=== PATIENT | male | born 1985 | race Two or more races ===

== ENCOUNTER 2016-08-20 22:20 | Emergency (ER) | payer MEDICAID, OTHER ==
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
[2016-08-20 22:41] VITALS: TEMP 97.5; O2SAT 97
[2016-08-20 22:54] LABS: % IMMATURE GRANULYOCYTES 0.4 % (0.0-1.1); ABSOLUTE IMMATURE GRANULOCYTES 0.02 10^3/uL (0.00-0.10); ADD DIFF? NO; ADD MORPH? NO; ADD SCAN? NO; ATYPICAL LYMPHOCYTE FLAG 10 (0-99); FRAGMENT RBC FLAG 0 (0-99); HEMATOCRIT 45.1 % (40.0-51.0); HEMOGLOBIN 14.5 g/dL (13.7-17.5); LEFT SHIFT FLG 0 (0-99); LIPEMIA HEMOLYSIS FLAG 80 (0-99); MEAN CELL HEMOGLOBIN 27.5 pg (27.9-34.1); MEAN CELL HEMOGLOBIN CONCENTR. 32.2 g/dL (32.4-36.7); MEAN CELL VOLUME 85.4 fL (81.5-99.8); MEAN PLATELET VOLUME 10.7 fL (8.7-11.7); PLATELET CLUMPS FLAG 0 (0-99); PLATELET COUNT 307 10^3/uL (150-400); RED BLOOD CELL COUNT 5.28 10^6/uL (4.40-6.38); RED CELL DISTRIBUTION WIDTH 12.3 % (11.5-15.2)
[2016-08-20 23:10] LABS: ALANINE AMINOTRANSFERASE 34 IU/L (21-72); ALBUMIN 5.2 g/dL (3.5-5.0); ALKALINE PHOSPHATASE 107 IU/L (38-126); ANION GAP 15 mEq/L (8-16); ASPARTATE AMINOTRANSFERASE 21 IU/L (17-59); BILIRUBIN,TOTAL 0.7 mg/dL (0.1-1.4); CALCIUM 10.5 mg/dL (8.5-10.4); CARBON DIOXIDE 20 mEq/l (22-31); CHLORIDE 105 mEq/L (97-110); CREATININE 0.9 mg/dL (0.7-1.3); ETHANOL SERUM < 10 mg/dL (0-10); GLOMERULAR FILTRATION RATE > 60; GLUCOSE 116 mg/dL (70-100); POTASSIUM 4.5 mEq/L (3.5-5.2); SODIUM 140 mEq/L (134-144); TOTAL PROTEIN 8.7 g/dL (6.3-8.2)
[2016-08-21] MEDS ORDERED: IBUPROFEN 200 MG TAB PO ONE (00:02)
[2016-08-21 00:23] VITALS: BP 125/81; PULSE 78; RESP 16
== END 2016-08-21 00:24 | disposition home or self-care (01) ==
LOC: EDUNIT#
DX: F19.10 Other psychoactive substance abuse, uncomplicated (principal); F17.200 Nicotine dependence, unspecified, uncomplicated
CPT/HCPCS: 80305; G0480

== ENCOUNTER 2017-07-08 07:20 | Emergency (ER) | payer MEDICAID ==
--- NOTE | 2017-07-08 07:36 | EDPHY ---
H & P Smoking Status: Current every day smoker Time Seen by Provider: 07/08/17 07:27 HPI/ROS: CHIEF COMPLAINT: Homicidal and suicidal HISTORY OF PRESENT ILLNESS: 31-year-old male with bipolar disorder and schizophrenia presents with homicidal thoughts. He has a history of bipolar disorder and has previously been on Wellbutrin and Zyprexa. He stopped taking his medications 2 months ago. Last evening, he drank an excessive amount of alcohol and then began been having suicidal and homicidal thoughts. He was picked up by PD and placed on an M1 hold because he stated that he was going to kill somebody. He has been in long term previously, but has never killed anyone. He cut his wrists 2 months ago in a suicidal gesture. REVIEW OF SYSTEMS: Constitutional: No fever, no recent illness Eyes: No visual changes ENT: No sore throat Respiratory: No cough, no shortness of breath Cardiac: No chest pain Gastrointestinal: no vomiting, no abdominal pain Genitourinary: no dysuria Musculoskeletal: No leg pain or swelling Skin: No rash Neurological: No headache, no weakness Psychiatric: depression (Peyton Carrasquillo) Past Medical/Surgical History: Claims to have multiple psychiatric diagnoses, including bipolar disorder, schizophrenia, OCD, and PTSD (Peyton Carrasquillo) Social History: Homeless Denies recent drug use (Peyton Carrasquillo) Physical Exam: General Appearance: Alert, calm and cooperative Eyes: Pupils equal and round, no conjunctival pallor ENT, Mouth: Mucous membranes moist Neck: Normal inspection Respiratory: Lungs are clear to auscultation Cardiovascular: Regular rate and rhythm Gastrointestinal: Abdomen is soft and nontender Neurological: A&O, nonfocal, normal gait Skin: Warm and dry Extremities: Normal inspection Psychiatric: Mood and affect normal (Peyton Carrasquillo) Constitutional: Initial Vital Signs Temperature (C) 36.6 C 07/08/17 07:42 Heart Rate 100 07/08/17 07:42 Respiratory Rate 16 07/08/17 07:42 Blood Pressure 128/95 H 07/08/17 07:42 O2 Sat (%) 98 07/08/17 07:42 O2 Delivery Mode Room Air Allergies/Adverse Reactions: promethazine Allergy (Verified 08/20/16 22:41) Home Medications: Medication Instructions Recorded Neurontin 07/08/17 Wellbutrin 100mg (*) 07/08/17 Zyprexa 07/08/17 Medical Decision Making ED Course/Re-evaluation: 07:00 I assumed care of this patient at shift change. Following mental health evaluation, placement is recommended for this patient. 13:23 Patient is still pending placement. 14:36 Patient has been declined by every facility at this time. Per nurse, the options are to drop the hold or reevaluate the patient. The patient needs to remain on M1 hold. Plan for reevaluation. 15:00 Care of this patient signed out to Dr. Carrasquillo at shift change. (Guru Valderrama) 3:00 p.m.-signed over to Dr. Armando at shift change. Mental health evaluation pending. 07/09/17 at 3pm: I assumed care of this patient at shift change. Patient has been seen by mental health and inpatient disposition pending. 07/09/17 at 11pm: signed over to Dr. Medina at shift change. Inpatient mental health disposition pending. He received Ativan 1 mg orally for agitation during my shift. (Peyton Carrasquillo) 0600AM: No acute events overnight. Patient on M1 hold. Patient here with homicidal ideation. History of bipolar disorder. He has positive cocaine. He is currently having his mental health evaluation. Patient be signed over to Dr. Valderrama at 7am shift-change for further care. 0647: 07/10/17 No acute events overnight. Patient signed over to Dr. Kimble. Pending re-eval. (Marshal Medina) Other Provider: I assumed care of the patient at 3pm pending psychiatric disposition. The patient is currently awaiting psychiatric disposition at midnight. He did receive some Ativan throughout my shift for symptoms reported withdrawal. The patient will be turned over to Dr. Medina at shift change. (Galindo Armando) Mental health executive steward discussed case with me after re-evaluation. She has established a safety plan and follow-up and feels that patient is low risk for complication of discharge, and hold can be lifted. (Tyrone Kimble) - Data Points Laboratory Results: Laboratory Results 07/08/17 07:40 07/08/17 07:40 Medications Given: Discontinued Medications Acetaminophen (Tylenol) 650 mg PO EDNOW ONE Stop: 07/09/17 21:30 Last Admin: 07/09/17 21:31 Dose: 650 mg Lorazepam (Ativan) 1 mg PO EDNOW ONE Stop: 07/08/17 15:36 Last Admin: 07/08/17 15:38 Dose: 1 mg Lorazepam (Ativan) 1 mg PO EDNOW ONE Stop: 07/08/17 19:56 Last Admin: 07/08/17 20:05 Dose: 1 mg Lorazepam (Ativan) 1 mg PO EDNOW ONE Stop: 07/09/17 21:21 Last Admin: 07/09/17 21:28 Dose: 1 mg Ondansetron HCl (Zofran Odt) 4 mg PO EDNOW ONE Stop: 07/08/17 15:39 Last Admin: 07/08/17 15:40 Dose: 4 mg Departure - Departure Disposition: Home, Routine, Self-Care Clinical Impression: Suicidal ideation, Homicidal ideation Condition: Good Instructions: Suicide Prevention for Adults (ED) Additional Instructions: Follow-up with your mental health provider as directed. Return to the ED for thoughts of self-harm, racing thoughts or other concerns. Referrals: NONE *PRIMARY CARE P,. [Primary Care Provider] - As per Instructions
[2017-07-08 07:54] LABS: PLATELET COUNT 227 10^3/uL (150-400)
[2017-07-08] MEDS ORDERED: LORazepam 1 MG TAB PO ONE ×2 (15:35→19:55)
[2017-07-08] MEDS ORDERED: ONDANSETRON DISINTEGRATING 4 MG TAB PO ONE (15:38)
--- NOTE | 2017-07-09 11:37 | CPEKG ---
Heart Rate: 64 RR Interval: 938 P-R Interval: 176 QRSD Interval: 96 QT Interval: 408 QTC Interval: 421 P [place]: 58 QRS [place]: 87 T Wave [place]: 71 EKG Severity - NORMAL ECG - EKG Impression: SINUS RHYTHM Electronically Signed By: Guru Valderrama 09-Jul-2017 14:09:33
[2017-07-09] MEDS ORDERED: LORazepam 1 MG TAB ONE (21:19)
[2017-07-09] MEDS ORDERED: LORazepam 1 MG TAB PO ONE (21:20)
[2017-07-09] MEDS ORDERED: ACETAMINOPHEN 325 MG TAB ONE (21:25)
[2017-07-09] MEDS ORDERED: ACETAMINOPHEN 325 MG TAB PO ONE (21:29)
[2017-07-10 04:12] VITALS: RESP 16
[2017-07-10 08:28] VITALS: BP 102/61; PULSE 76; TEMP 97.5; O2SAT 96
== END 2017-07-10 12:01 | disposition home or self-care (01) ==
LOC: EEVIPCON 07:20
DX: R45.851 Suicidal ideations (principal); R45.850 Homicidal ideations; F17.200 Nicotine dependence, unspecified, uncomplicated
CPT/HCPCS: 80305; G0480

== ENCOUNTER 2017-07-26 16:31 | Emergency (ER) | payer MEDICAID ==
--- NOTE | 2017-07-26 18:10 | EDPHY ---
H & P Time Seen by Provider: 07/26/17 17:44 HPI/ROS: CHIEF COMPLAINT: Cough x2 months HISTORY OF PRESENT ILLNESS: 31-year-old immunocompetent male, homeless, intermittent cigarette use, complaining of 2 months of intermittently productive cough. He arrives via ambulance as he was at the [facility] walk-in clinic to discuss his medications but then called 911 due to his cough. Denies: Chest pain, dyspnea, suicidal or homicidal ideation, hallucination, cocaine use. PRIMARY CARE PROVIDER: REVIEW OF SYSTEMS: A ten point review of systems was performed and is negative with the exception of the items mentioned in the HPI PAST MEDICAL & SURGICAL HISTORY: Schizophrenia SOCIAL HISTORY: Intermittent tobacco use PHYSICAL EXAM (Prior to examination, patient consented to physical exam, hands were washed and my usual and customary physical exam procedures followed) 1) GENERAL: Well-developed, well-nourished, alert and oriented. Appears to be in no acute distress. Speaking full sentences. Comp cooperative 2) HEAD: Normocephalic, atraumatic 3) HEENT: Pupils equal, round, reactive to light bilaterally. Sclera anicteric. Nasopharynx, oropharynx, clear, no lesions. No tonsillar enlargement or exudate Ears bilaterally with normal tympanic membranes. 4) NECK: Full range of motion, no meningeal signs. 5) LUNGS: Clear auscultation bilaterally, no wheezes, no rhonchi, no retractions. 6) HEART: Regular rate and rhythm, no murmur, no heave, no gallop. 7) ABDOMEN: No guarding, no rebound, no focal tenderness, negative McBurney's, negative Whalen's, negative Rovsing's, negative peritoneal sign, 8) MUSCULOSKELETAL: Moving all extremities, no focal areas of tenderness, no obvious trauma. No peripheral edema or discoloration. 9) BACK: No CVA tenderness, no midline vertebral tenderness, no fluctuance, no step-off, no obvious trauma, no visual or palpable abnormality. 10) SKIN: No rash, no petechiae. 11) Psychiatric: Patient is oriented X 3, there is no agitation. DIFFERENTIAL DIAGNOSIS: In no particular order including but not limited to bronchitis, pneumonia, influenza Smoking Status: Current every day smoker Constitutional: Initial Vital Signs Temperature (C) 36.5 C 07/26/17 16:40 Heart Rate 77 07/26/17 16:40 Respiratory Rate 18 07/26/17 16:40 Blood Pressure 121/70 H 07/26/17 16:40 O2 Sat (%) 97 07/26/17 16:40 O2 Delivery Mode Room Air Allergies/Adverse Reactions: promethazine Allergy (Mild, Verified 07/26/17 16:49) n/v Home Medications: Medication Instructions Recorded Albuterol [Proventil Inhaler HFA 1 - 2 puffs IH Q4PRN PRN #1 mdi 07/26/17 (*)] Azithromycin [Zithromax] 500 mg PO DAILY #1 packet 07/26/17 Benzonatate [Tessalon Pearles (RX)] 200 mg PO TID PRN #10 cap 07/26/17 MDM/Departure - MDM Imaging Results: Imaging Impressions Chest X-Ray 07/26/17 17:45 Impression: Central bronchitis, otherwise negative.. Images reviewed myself ED Course/Re-evaluation: The patient is maintaining normal saturations, lungs are clear bilaterally. I do not think that hospitalization or further diagnostic studies are indicated. Plan will be discharged with antibiotic, antitussive. I specifically inquired whether he is experiencing suicidal or homicidal ideations as he has been seen in the ER for this previously. Does note that he is feeling depressed without suicidal ideation. He would like to go back to [facility] to discuss his psychiatric medications which he is currently out of. Care of patient under supervision of secondary supervising physician Dr Medina. - Depart Disposition: Home, Routine, Self-Care Clinical Impression: Cough Condition: Good Instructions: Chronic Cough (ED) Additional Instructions: Call 911 immediately for change in breathing habits, change in voice, change in swallowing habits, change in mental status, thoughts of killing or hurting yourself or others, or any other symptoms that concern you. Prescriptions: Albuterol [Proventil Inhaler HFA (*)] 1 - 2 puffs IH Q4PRN PRN #1 mdi PRN Reason: Cough, Moderate Azithromycin [Zithromax] 500 mg PO DAILY #1 packet Benzonatate [Tessalon Pearles (RX)] 200 mg PO TID PRN #10 cap PRN Reason: Cough, Moderate Referrals: [facility],. [Clinic] - 2-3 days, call for appt.
[2017-07-26 18:30] VITALS: BP 130/78; PULSE 59; RESP 14; TEMP 98.1; O2SAT 96
== END 2017-07-26 18:30 | disposition home or self-care (01) ==
LOC: EDUNIT#
DX: R05 Cough (principal); F17.200 Nicotine dependence, unspecified, uncomplicated

== ENCOUNTER 2018-02-05 19:42 | Emergency (ER) | payer MEDICAID, OTHER ==
--- NOTE | 2018-02-05 20:03 | EDPHY ---
General - History Smoking Status: Light smoker Time Seen by Provider: 02/05/18 20:03 Narrative: CHIEF COMPLAINT: Suicidal HISTORY OF PRESENT ILLNESS: Patient presents by private vehicle, voluntarily with complaints of feeling suicidal. He says"I have been dealing with depression and feeling suicidal for a few days." He admits to alcohol use daily, last use yesterday with supervised detox today. He admits to daily methamphetamine use, last use 2 days ago. He says that over the past few days his depression is been out of control, he is plan to shoot himself in the head. He does have access to a gun in his home and he has reportedly attempted suicide in the past. He reports cutting his wrist in the past as suicide gesture. He expresses intent to harm himself and asking for help for he has been off of his psychiatric medications for nearly 2 months. PSYCHIATRIC DIAGNOSES: Schizophrenia, PTSD, depression, manic depressive PRIOR PSYCHIATRIC EVALUATIONS: Multiple inpatient evaluations. M1/DETAINER: M1 hold by Dr. Hannon at 8:15 p.m. REVIEW OF SYSTEMS: Ten systems reviewed and are negative unless otherwise noted in the HPI EXAMINATION General Appearance: Alert, no distress. Conversing in full sentences Head: normocephalic, atraumatic Eyes: Pupils equal and round, no conjunctival pallor or injection ENT, Mouth: Mucous membranes moist Neck: Normal inspection, supple, non-tender Respiratory: No retractions or distress. Cardiovascular: Regular rate with good signs of perfusion distally Gastrointestinal: Abdomen is soft and nontender Back: non-tender, no bony abnormalities Neurological: A&O, nonfocal, normal gait Skin: Warm and dry, no rash Extremities: Nontender, no pedal edema Psychiatric: Depressed mood and flat affect. Admits to suicidal ideation with plan of shooting himself. Admits to polysubstance abuse and alcohol abuse. DIFFERENTIAL DIAGNOSES: Including but not limited to suicidal ideation, depression, PTSD, polysubstance abuse, bipolar disorder, schizophrenia MDM: 8:15 p.m. Increasing depression and thoughts of self-harm with a plan of shooting himself with a gun. Patient has been placed on an M1 hold at this time, signed by Dr. Hannon. He is thus far cooperative without agitation or combative behavior. Proceed with medical clearance and evaluation. 9:30 p.m. CBC and chemistry unremarkable. Urine sample not yet provided. 10:45 p.m. Patient resting comfortably. Urine sample not yet provided. 11:55 p.m. Patient is sleeping. He is not yet provided a urine sample. At this time I have discussed the case with Dr. Rand. He will assume care the patient at this time. Please see his note for final disposition. SUPERVISION: Patient was independently examined, but I discussed the case with my secondary supervising physician Dr. Rand ([facility]) 1834 care assumed by me from DEVI Ku pending mental health evaluation. 0700 patient signed out to Dr. Hannon pending mental health evaluation. (Sarath Rand) Medical Decision Makin:30 a.m. the patient was accepted at [address] [place] [address] Ndiaye. Transfer paperwork completed. (Bjorn Hannon) - Objective Vital Signs: Initial Vital Signs Temperature (C) 37.1 C 02/05/18 19:55 Heart Rate 77 02/05/18 19:55 Respiratory Rate 16 02/05/18 19:55 Blood Pressure 120/75 02/05/18 19:55 O2 Sat (%) 98 02/05/18 19:55 O2 Delivery Mode Room Air Allergies/Adverse Reactions: promethazine Allergy (Mild, Verified 07/26/17 16:49) n/v Home Medications: Medication Instructions Recorded NK [No Known Home Meds] 02/07/18 Laboratory Results: Laboratory Results 02/05/18 20:10 02/05/18 20:10 Medications Given: Discontinued Medications Lorazepam (Ativan) 1 mg PO EDNOW ONE Stop: 02/06/18 00:50 Last Admin: 02/06/18 00:54 Dose: 1 mg Ondansetron HCl (Zofran Odt) 4 mg PO EDNOW ONE Stop: 02/06/18 08:27 Last Admin: 02/06/18 08:29 Dose: 4 mg Departure - Departure Disposition: [facility] IP Clinical Impression: Suicidal ideation, Polysubstance abuse Condition: Fair Referrals: NONE *PRIMARY CARE P,. [Primary Care Provider] - As per Instructions [facility],. [Clinic] - As per Instructions Whit Capellan MD [Medical Doctor] - As per Instructions [facility] [Clinic] - As per Instructions
[2018-02-05 20:29] LABS: PLATELET COUNT 234 10^3/uL (150-400)
[2018-02-06] MEDS ORDERED: LORazepam 1 MG TAB PO ONE (00:49)
[2018-02-06] MEDS ORDERED: ONDANSETRON DISINTEGRATING 4 MG TAB PO ONE (08:26)
[2018-02-06 12:30] VITALS: BP 107/53
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
--- NOTE | 2018-02-06 14:03 | ASMTTCLDSP ---
TLC Discharge Disposition Disposition: Answers: Admit Disposition Notes: Notes: Admit 3N. Discharge Concerns/Recommendations: Notes: In consultation with [facility] ED physician, Bjorn Hannon MD and on-call psychiatrist, Shen Ndiaye MD, both concurred that pt appears to meet 27-65 criteria requiring psychiatric hospitalization as pt appears to be at risk of harm to self/gravely disabled due to a mental illness condition. Pt was given the 3N prohibited belongings list while in the ED. Was patient given the Answers: Yes Inpatient Behavioral Health Prohibited Belongings List while in the ED? For inpatient Shen Ndiaye MD admission, the following psychiatrist agreed to accept patient for admission to Behavioral Health ([facility]): Type of Hold: Answers: M1/72-hour Hold Hold initiated by: Answers: ED Physician Date Signed: 02/06/2018 02:02 PM Electronically Signed By:Maxwell Mario
== END 2018-02-06 12:30 ==
PROC: GZ11ZZZ Psychological Tests, Personality and Behavioral (ICD-10-PCS; principal; 2018-02-05)
DX: R45.851 Suicidal ideations (principal); F19.10 Other psychoactive substance abuse, uncomplicated; F31.9 Bipolar disorder, unspecified; F17.200 Nicotine dependence, unspecified, uncomplicated
CPT/HCPCS: 80305; G0480

== ENCOUNTER 2018-02-06 12:50 | Inpatient (IN) | payer MEDICAID ==
[2018-02-06] MEDS ORDERED: MAGNESIUM HYDROXIDE 30 ML UDCUP PO PRN (13:07)
[2018-02-06] MEDS ORDERED: NICOTINE POLACRILEX 2 MG GUM B PRN (13:07)
[2018-02-06] MEDS ORDERED: MAG HYDROX/AL HYDROX/SIMETH 30 ML UDCUP PO PRN (13:07)
[2018-02-06] MEDS ORDERED: OLANZapine DISINTEGR 10 MG TAB PO PRN (13:07)
[2018-02-06] MEDS ORDERED: PALIPERIDONE 9 MG TAB.ER PO ONE (13:09)
[2018-02-06] MEDS ORDERED: PALIPERIDONE 3 MG TAB.ER PO ONE (14:15)
[2018-02-06] MEDS: ACETAMINOPHEN 325 MG TAB PO PRN ×2 (14:20→21:40)
--- NOTE | 2018-02-06 15:58 | BCON ---
INTERNAL MEDICINE CONSULTATION DATE OF CONSULTATION: 02/06/2018 REFERRING PHYSICIAN: DR. GRAMAJO REASON FOR REFERRAL: Medical clearance for inpatient behavioral health stay. HISTORY OF PRESENT ILLNESS: This patient came to the emergency department yesterday complaining of suicidal ideation and intent to shoot himself. He reported that he had a gun at his mother's house, which he had found under the sink in the kitchen. He was evaluated by the mental health team and admitted for further psychiatric care. Currently, he complains of headache. He also reports he is hungry. Otherwise, he is without any medical complaints. PAST MEDICAL HISTORY: 1. Childhood asthma. 2. Alcohol use disorder. 3. Methamphetamine abuse. PAST SURGICAL HISTORY: He has had an appendectomy. MEDICATIONS: Prior to admission, he was not taking any medications. ALLERGIES: There is an allergy listed to promethazine. SOCIAL HISTORY: He is living at his mother's house. He reports his mother is an alcoholic. He is a smoker. He stopped using alcohol approximately 2 days ago and reports he was in a withdrawal management center prior to coming to the emergency department. He also has a history of snorting and smoking methamphetamine but denies IV drug abuse. He has been in [facility]. 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 He is currently unemployed. FAMILY HISTORY: His mother is an alcoholic, has cirrhosis of the liver. REVIEW OF SYSTEMS: He has a headache. He is hungry and does not want to eat more sandwiches. He reports his weight fluctuates up and down, and there has been no trend. He has no nausea, vomiting, diarrhea, or constipation. He is not currently complaining of any symptoms of alcohol withdrawal, including no shakes and no sweats. Otherwise, a 10-point review of systems is negative. PHYSICAL EXAM: VITAL SIGNS: Blood pressure is 110/81, heart rate is 81, respiratory rate is 14, oxygen saturation is 95% on room air, temperature is 36.5 degrees centigrade. His weight is 68 kg for a body mass index of 22.2. Chart review shows a stable weight going back to July of 2016. GENERAL: This is a well-nourished, well-developed man lying in bed, initially not cooperative , but subsequently becomes cooperative, agrees to sit up for interaction with the examiner. In no acute distress. HEENT: Extraocular movements are intact. Pupils are equal, round, and reactive to light. Mucous membranes are moist. Dentition is in good condition. He has an uncrowded airway, Mallampati class 2. NECK: Supple. HEART: There is regular rate and rhythm with no murmurs, rubs, or gallops. LUNGS: Clear to auscultation bilaterally. ABDOMEN: Benign. EXTREMITIES: There is no cyanosis, clubbing, or edema. NEUROLOGIC: He is alert and oriented x3. Cranial nerves 2-12 are grossly intact. There is no focal weakness, and sensation is intact to light touch. LABORATORY STUDIES: Drawn yesterday in the emergency department: CBC revealed mild anemia with a hemoglobin of 12.4 and hematocrit of 39.3. MCV was normal, but he had a low MCH and MCHC. Otherwise, CBC was normal. Serum chemistry revealed normal renal function and electrolytes. Toxicology screen in the serum was negative for any substances of abuse. Toxicology screen in the serum was negative for salicylates, acetaminophen, or ethyl alcohol, and toxicology screen in the urine was non-negative for benzodiazepines but otherwise negative for substances of abuse. ASSESSMENT/RECOMMENDATIONS: 1. Mental health issues pending further evaluation and management per Psychiatry and the mental health team. 2. Anemia: Unclear etiology, possibly nutritional, though his weight appears to have been stable. I have ordered a reticulocyte count as well as an iron panel to further characterize. 3. Headache: I have added ibuprofen to the acetaminophen, which has already been ordered. He has no signs or symptoms of any other significant neurologic disease. 4. Alcohol use disorder: Advise observing carefully for alcohol withdrawal symptoms. 5. Methamphetamine abuse: He may benefit from specific substance abuse counseling regarding methamphetamine as well as alcohol. I see no medical contraindications to this patient's continued stay on the inpatient behavioral health unit or to any psychiatric medications or procedures. Thank you very much for including me in the care of this patient, and please do not hesitate to contact me or the hospitalist service should there be need for further medical evaluation. /[id number]/MODL MTDD
--- NOTE | 2018-02-06 19:00 | BAPA ---
DATE OF SERVICE: 02/06/2018 CHIEF COMPLAINT: "I am here because I am thinking about killing myself. My mother has been diagnosed with cirrhosis of the liver. If I lose her, I don't know what I am going to do. I have a diagnosis of schizophrenia and I have been off my medications and currently having auditory hallucinations." HISTORY OF PRESENT ILLNESS: From the ED note dated 02/05/2018, at 2002, the patient presented to the emergency department by private vehicle reporting feelings of suicide. The patient admitted to using alcohol daily, last used yesterday, with supervised detox today. The patient admitted to daily use of methamphetamines, reported last using methamphetamine 2 days ago. The patient reports for the last few days he has been depressed and that the depression has been out of control and he plans to shoot himself in the head. The patient reports he does have access to a gun in his home and has reportedly attempted suicide in the past. The patient reports he has been off his psychiatric medications for nearly 2 months. The patient reports psychiatric diagnoses of schizophrenia, PTSD, depression, and manic depressive states. The patient reported multiple inpatient evaluations. The patient was admitted involuntarily on an M1 hold due to being a danger to himself and was hospitalized for safety crisis stabilization and medication evaluation. The patient describes to this UNATTENDED GROUND SENSOR SPECIALIST circumstances that led to current hospitalization as his mother has a terminal illness and he is afraid that if he loses her he will not know what he will do. The patient also reports that he has a suspicion that his mother and his friend have been together and the patient reports he is upset at both his mother and his friend for this. He reports they have been together romantically. The patient reports to this UNATTENDED GROUND SENSOR SPECIALIST a history of schizophrenia. He reports he was diagnosed at the [facility] in [place]. The patient reports being on numerous psychotropic medications for auditory hallucinations. The patient reports he has also been diagnosed with bipolar disorder in the past. The patient states to this UNATTENDED GROUND SENSOR SPECIALIST substance use prior to hospitalization included drinking daily, using methamphetamines daily with the last use 2 days ago. The patient describes to this UNATTENDED GROUND SENSOR SPECIALIST current psychiatric symptoms as psychosis. The patient reports auditory hallucinations. The patient reports a history of estefanía symptoms, including irritable mood, persistently elevated and expansive mood with goal-directed activity and increased energy present most of the day and nearly every day for up to a [id number] at times. The patient reports during this time he has feelings of grandiosity and decreased need for sleep. The patient reports he has a pressure to keep talking. He feels like his thoughts are racing. He is distractible, and during these periods of time he has an excessive involvement in activities that have a high potential for painful consequences, including substance use. The patient reports these periods of time last anywhere from 7 to 10 days and occur every 3 to 4 months. The patient describes a history of PTSD. However, he does not provide any details. We will follow up with the patient regarding the history of PTSD at a later time. The patient does report current suicidal ideation. However, he does not report any specific plan. The patient was reporting his plan to shoot himself in the ER prior to this admission. The patient does report protective factors or reasons to live are his family. The patient denies current homicidal ideation. The patient denies current self-injurious ideation. The patient did report in the ER, prior to this admission, that he has a history of cutting his wrists in the past as a suicide gesture. The patient reports past outpatient treatment at [facility]. The patient also states that he has had mental health treatment at [facility] in the past. PAST PSYCHIATRIC HISTORY: The patient describes to this UNATTENDED GROUND SENSOR SPECIALIST the following psychiatric history: The patient reports past diagnoses of schizophrenia, PTSD , depression, and a history of estefanía and bipolar. The patient reports past psychotropic medications as Zyprexa. The patient reports that the Zyprexa just made him feel tired and did not help with auditory hallucinations. The patient reports a history of using risperidone and Depakote in the past. The patient reports that he is unsure if Depakote was beneficial in the past for mood stabilization. The patient does report a history of inpatient psychiatric hospitalizations, however, he states that at this time he is unsure of when and where. The patient does report a history of a suicide attempt. However, he does not provide any specific details regarding this attempt. ALLERGIES: Promethazine. CURRENT MEDICATIONS: At the time of this admission, the patient was not on any medications and reports he has been off his psychotropic medications for at least 2 months. PAST MEDICAL HISTORY: The patient reports a history of childhood asthma, alcohol use disorder, recent use of methamphetamine, and a history of using cannabis. PAST SURGICAL HISTORY: Appendectomy. SOCIAL HISTORY: The patient reports he is currently living with his mother at his mother's home. The patient describes his mother as an alcoholic. The patient reports that he also has struggled with alcohol use and quit drinking alcohol 2 days ago. He reports that he was in a withdrawal management center prior to coming to the emergency department. The patient reports a history of snorting and smoking methamphetamine. The patient states he was recently in detention. He does not report any details regarding this incarceration. 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 The patient reports he is currently unemployed. SUBSTANCE USE HISTORY: The patient reports a history of drinking on a daily basis. He reports he last drank 2 days ago and required the management of a detox center. The patient reports that he does smoke cigarettes. He does not report the amount at this time. The patient reports he has used marijuana in the past. The patient reports daily use of methamphetamines. He reports he last used methamphetamine 2 days ago. The patient denies a history of cocaine and crack use. He denies a history of heroin use. He denies a history of prescription medication abuse and does not report any other abuse of substances. FAMILY PSYCHIATRIC HISTORY: The patient reports that his mother abuses alcohol and currently has cirrhosis of the liver. ADMISSION LABS AND STUDIES: From the emergency department: CBC revealed mild anemia with a hemoglobin of 12.4 and hematocrit of 39.3. MCV was normal. The patient had a low MCH and MCHC. Otherwise, CBC was normal. Serum chemistry revealed normal renal function and electrolytes. Toxicology screen in the serum was negative for any substances of abuse. Toxicology screen in the serum was negative for salicylates, acetaminophen or ethyl alcohol, and toxicology screen in the urine was non-negative for benzodiazepines but otherwise negative for substances of abuse. MENTAL STATUS EXAM: The patient is a well-nourished male looking stated chronological age. Attire is appropriate. Dress is hospital garb. Grooming status is appropriate. Ambulation is independent. Gait is normal and coordinated. Posture is normal and relaxed. Eye contact is appropriate and adequate. Motor activity is appropriate with purposeful, organized, coordinated movements with no involuntary movements noted. Attitude is cooperative and friendly. The patient appears somewhat attentive and relates fairly well to this interviewer. Language production is spontaneous. Rate, rhythm and volume are normal. The patient reports mood as okay, with constricted and incongruent irritable affect. The patient's thought process is illogical at times, with no loose associations. The patient does have a tangential thought and no thought blocking or concrete thinking and no other signs of formal thought disorder. The patient does report suicidal thoughts and does not report any specific plan. The patient denies homicidal ideation. The patient reports auditory hallucinations. The patient denies visual hallucinations. The patient denies delusions. The patient does not appear to be attending to internal stimuli. The patient is oriented to person, place, time, and situation. The patient's attention and concentration are poor. The patient's insight and judgment are poor. There is no evidence of gross cognitive dysfunction at any point during the interview and no evidence of apparent dysfunction in recent or remote memory noted. DIAGNOSES: 1. Schizoaffective disorder, bipolar type. 2. Stimulant use disorder, severe. 3. Alcohol use disorder, severe, 4. Rule out cannabis use disorder, severe. FORMULATION: The patient is a 32-year-old male, single, unemployed, currently living with his mother, who presents to the hospital involuntarily due to a risk to harm himself, and he is currently on an M1 hold. The patient requires continued inpatient care because of current acute psychosis and suicidal ideation. The patient presents with problems of suicidal ideation that has been suddenly increasing over the past several days. The exacerbation of symptoms was preceded by the patient's increased family stressors. The patient reported a past psychiatric history of schizophrenia and bipolar disorder. The patient has currently been off psychotropic medications for a couple months, per patient's report. The patient is at a high suicide safety risk due to current acute psychosis and suicidal ideation. Protective factors while hospitalized include ongoing safety checks, active involvement in treatment, and support from our treatment team. The patient could benefit from inpatient hospitalization for safety, crisis stabilization, and medication evaluation. PLAN: (1) Psychotropic medications: After reviewing options, risks and benefits, the patient agrees to Invega 6 mg p.o. daily and Depakote 1500 mg p.o. at bedtime. No other medication changes at this time as more time is needed to determine ongoing tolerability and efficacy. Plan is to continue to observe patient for response and side effects from medications, and ongoing monitoring and evaluation. (2) Review with patient informed consent and recommendations for psychotropic medication treatment listed below (3) Labs: A1c, fasting lipid panel, liver function test (4) Therapy: continue milieu and group therapy (5) Further investigation including gathering information from patients relatives and review of past case records to inform treatment plan. (6) Safety/Wellness plan and follow-up outpatient appointments to be established prior to discharge. Next steps are for patient to meet with certified caregiver to plan a safe discharge plan and establish outpatient services for ongoing treatment. (7) Confer with inpatient treatment team regarding treatment plan. (8) Legal status: M1, to sign in voluntary when M1 expires (9) Consider discharge on Saturday if patient is in stable condition, safe, and has a safe discharge plan. (10) Substance abuse interventions: alcohol and methamphetamine ESTIMATED LENGTH OF STAY: 3-5 days PSYCHOTROPIC MEDICATION TREATMENT INFORMED CONSENT and RECOMMENDATIONS: Review nature of condition, diagnosis, and prognosis. Review nature and purpose of psychotropic medication treatment. Review type of psychotropic medications being ordered. Review risk and benefits of psychotropic medication treatment. Review probable length of time will need to take medications. Review risk and benefits of not undergoing psychotropic medication treatment. Review alternative treatments to psychotropic medications. Review psychotropic medications contraindications, drug-drug interactions, side effects, and importance of reporting any side effects to a psychiatric provider or nurse during inpatient hospitalization, and upon discharge to patients psychiatric outpatient provider, primary care provider, or other health client care representative. Review importance of asking a nurse, psychiatric provider, or primary care provider any questions or problems concerning the psychotropic medications. Verifty patient understands the information that has been provided, and understands, accepts, and agrees to psychotropic medications. Review patients safety plan and importance of patient to communicate to staff while hospitalized if patient is ever a danger to self/others, or unable to care for self, and upon discharge, the importance for patient to contact [facility] or [facility], or go to the nearest emergency room, if patient is ever a danger to self/others, or unable to care for self. Recommend that upon discharge patient establish medication management treatment with a psychiatric provider, establishes routine therapy appointments, and follow-up with primary care provider. Verify patient understands and agrees to these recommendations. /[id number]/MODL MTDD
[2018-02-06] MEDS: DIVALPROEX ER 500 MG TAB PO SCH (20:34)
--- NOTE | 2018-02-07 08:04 | SOAPPROG ---
SOAP Progress Note Assessment/Plan: Assessment: Schizoaffective disorder, bipolar type, currently depressed. Stimulant use disorder, severe. Alcohol use disorder, severe. Slight improvement noted. ( see subjective/objective note). Patient is not safe to discharge at this time as patient continues to exhibit signs of depression, and express depressive symptoms. Patient requires continued inpatient care because of current depression, and requires inpatient level of care to stabilize. Patient could benefit from continued inpatient hospitalization for crisis stabilization ( recent SI with plan to use gun), safety (suicide by gun plan prior to admission) , and medication evaluation (patient reports good response from medications in the past and history of self-medicating with substances when no RX medications) . Plan: (1) Psychotropic medications: After reviewing options, risks, and benefits patient agrees to continue current medications. No medication changes at this time as more time is needed to determine ongoing tolerability and efficacy. Plan is to continue to observe patient for response and side effects from medications, and ongoing monitoring and evaluation. (2) Review with patient informed consent and recommendations for psychotropic medication treatment listed below (3) Labs: VPA level on Saturday prior to discharge (4) Therapy: continue milieu and group therapy (5) Further investigation including gathering information from patients relatives and review of past case records to inform treatment plan. (6) Safety/Wellness plan and follow-up outpatient appointments to be established prior to discharge. Next steps are for patient to meet with physician locums urgent care to plan a safe discharge plan and establish outpatient services for ongoing treatment. (7) Confer with inpatient treatment team regarding treatment plan. (8) Legal status: M1, to sign in voluntary when M1 expires (9) Consider discharge on Saturday if patient is in stable condition, safe, and has a safe discharge plan. (10) Substance abuse interventions: Alcohol and methamphetamine PSYCHOTROPIC MEDICATION TREATMENT INFORMED CONSENT and RECOMMENDATIONS: Review nature of condition, diagnosis, and prognosis. Review nature and purpose of psychotropic medication treatment. Review type of psychotropic medications being ordered. Review risk and benefits of psychotropic medication treatment. Review probable length of time patient will need to take medications. Review risk and benefits of not undergoing psychotropic medication treatment. Review alternative treatments to psychotropic medications. Review psychotropic medications contraindications, drug-drug interactions, side effects, and importance of reporting any side effects to a psychiatric provider or nurse during inpatient hospitalization, and upon discharge to patients psychiatric outpatient provider, primary care provider, or other health patient care associate. Review importance of asking a nurse, psychiatric provider, or primary care provider any questions or problems concerning the psychotropic medications. Verify patient understands the information that has been provided, and understands, accepts, and agrees to psychotropic medications. Review patients safety plan and importance of patient to report to staff while hospitalized if patient is ever a danger to self/others, or unable to care for self, and upon discharge, the importance for patient to contact [facility] or [facility], or go to the nearest emergency room, if patient is ever a danger to self/others, or unable to care for self. Recommend that upon discharge patient establish medication management treatment with a psychiatric provider, establishes routine therapy appointments, and follow-up with primary care provider. Verify patient understands and agrees to these recommendations. 02/07/18 08:02 Subjective: Following up with patient for evaluation of estefanía, psychosis, and safety. Patient reports, "Feeling pretty nauseous, think I am still withdrawing some from alcohol. I was drinking a pint of whiskey a day before I go there, I detoxed at the [facility] before going to the ER. I also used meth 3 days ago." Patient expresses the following psychiatric symptoms severe depression. Patient reports taking medications as prescribed, and describes response to medications as good. Patient does not report undesirable side effects from the medications, and agrees to continue current medications. With regard to medications patient states, "I am glad to be getting back on medications, have been off of them for about 2 months, and use alcohol and meth to try to get rid of the voices." Patient reports appetite as poor due to feeling nauseous, and reports eating all meals yesterday. Patient describes getting 8 hours of sleep. Patient requests to shave, and agrees to shave under close supervision. Patient agrees to stay until Saturday with discharge after VPA level. Objective: Vital Signs Temp Pulse Resp BP Pulse Ox 36.4 C 73 16 101/64 99 02/07/18 06:00 02/07/18 06:00 02/07/18 06:00 02/07/18 06:00 02/07/18 06:00 Laboratory Results 02/05/18 20:10 NURSING REPORT: Consulted with nursing for update on patients progress in treatment. Nurses report patient is engaged in treatment, is attending groups, slept 8 hours, expresses the following psychiatric symptoms: none, exhibits the following psychiatric symptoms: depressed, withdrawn, flat affect; is eating all meals, is agreeable to medications and taking as prescribed with no report of side effects, with no s/s of EPS/akathisia, and denies SI/HI, denies A/V hallucinations, and denies delusions. Nurses report patient is safe to shave under close supervision. MSE: The patient is a well-nourished male looking older than chronological age. Attire is appropriate and dress is casual. Grooming status is appropriate. Ambulation is independent. Gait is normal and coordinated. Posture is normal and relaxed. Eye contact is appropriate. Motor activity is appropriate with purposeful, organized, coordinated movements; with no involuntary movements. Attitude is cooperative and friendly. Patient appears attentive and relates well to this interviewer. Language production is spontaneous. Rate is hesitant. Latency of response is prolonged. Articulation is clear. Patient reports mood as depressed with congruent affect. Patients thought process is linear and logical. Associations are connected. Patient denies SI/HI. Patient denies auditory, visual hallucinations. Patient denies delusions. Patient does not appear to be attending to internal stimuli. Patients attention and concentration are poor. Patient is oriented to person, place, time. Patients insight is poor. Patients judgment is poor. No evidence of gross cognitive dysfunction at any point during the interview. No evidence of apparent dysfunction in recent or remote memory. SUBSTANCE ABUSE BRIEF INTERVENTION: Brief intervention regarding the risks of alcohol and methamphetamine abuse is provided to patient with goal to reduce the risk of harm that could result from the continued use of alcohol and methamphetamine, with the general aim to investigate the problem, raise awareness of problem, develop a solution with the patient, recommend a specific change or activity, and motivate the patient toward change. Assess substance abuse behavior and give supportive advice about harm reduction, recommend a reduction in hazardous/at-risk consumption patterns, and facilitate referrals for additional specialized treatment with care advocate. Intermediate goal is for the patient to quit use and attend AA/NA meetings and OP substance abuse treatment. Intervention focus on intermediate goals to allow for more immediate success in the treatment process to keep the patient motivated. Review following with patient: Alcohol/Binge Drinking risks: short-term: injuries, violence, alcohol poisoning, risky sexual behaviors. Long-term: high blood pressure, stroke, liver disease, digestive problems, cancer, learning and memory problems, depression and anxiety, social problems, and alcohol dependence. Methamphetamine use risks: Short-term: insomnia, irritability, aggressive behavior, hallucinations, delusions, intellectual deficits, anxiety, depression, convulsions, damage to blood vessels in the brain causing strokes, high fevers, collapse of the circulatory system. Long-term: damage to nerve pathways, maybe irreversibly; overstimulation to dopamine impairing dopamine transport and reducing efficiency of dopamine receptors, the reward system becomes worn out, leading to inability to experience pleasure for years. - Time Spent With Patient Time Spent With Patient: 15 minutes, met with patient individually. - Pending Discharge Pending Discharge Within 24 Hours: No Pending Discharge Within 48 Hours: No ICD10 Worksheet Patient Problems: Problems Problem Status Onset Schizoaffective disorder, bipolar type Acute Stimulant use disorder Acute
[2018-02-07] MEDS: PALIPERIDONE 3 MG TAB.ER PO SCH (08:15)
--- NOTE | 2018-02-07 09:32 | ASMTBHMTP ---
Master Treatment Plan Date: 02/07/2018 Diagnosis on Admission: Schizoaffective Disorder, Bipolar Type 295.70 (F25.0) Expected length of stay: 3-5 days Reason for admission: Notes: The patient stated, "Suicidal, homicidal...Because of my mom, she has sclerosis and she is still drinking. I don't want her to but I can't control her life. If she dies before me I'll use that gun... Call my dad and say goodbye; we don't talk much anymore. He wants me to go to rehab but I can't right now..." Regarding his homicidal ideation, the patient stated, "Let's just say that I'm easy to irritate and I'm trying not react because I do not want to go back to senior care." Patient's stated presenting problems: Notes: The patient reported that his 24YO cousin successfully suicided in October of 2017 following a break up with his partner; his cousin was found by his 7YO daughter. He overdosed of medication or drugs. The patient reported that his mother has a gun in the home and that if she dies of sclerosis that he will use the gun to suicide. He reported that he abuses drugs and alcohol and is motivated to quit but can not rehabilitate while he is also taking care of his mother and does not want to miss out on the life she has left. He mentioned a program in [place], [place]; he has a friend who is in treatment there. Patient's strengths: Notes: The patient is restoration, compassionate, and enjoys music. He comes from a family of musicians; vocals/rap. 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 Identify supports outside of hospital: Notes: The patient is supported by his mother and "auntie" primarily. He reported having decreased communication with his father. Discharge criteria: Notes: Suicidal ideation will resolve and patient will have a plan to safely manage recurrent suicidal ideation. Initial disposition plan/considerations: Notes: The patient will discharge home where he lives with his mother in [place], [place]. Master Treatment Plan Required Signatures Psychiatrist signature: Answers: Psychiatrist: RN on-shift signature: Answers: RN: Patient signature: Answers: Patient: Date Signed: 02/07/2018 09:31 AM Electronically Signed By:Allie Aguilar
--- NOTE | 2018-02-07 09:52 | PDMN ---
Medical Necessity Medical necessity: Pt meets inpt criteria per MD order and [facility], Schizophrenia Spectrum Disorders, Adult: Inpatient Care, 6 days. 32 y/o admitted on M1 Hold due to risk of harm to self requiring inpt psychiatric hospitalization b/c of current psychosis and suicidal ideation, diagnoses include schizoaffective disorder, bipolar type, stimulant use disorder-severe, alcohol use disorder-severe, R/O cannabis use disorder, anticipate>2MN for further eval/management of above conditions.
--- NOTE | 2018-02-07 13:04 | SOAPPROG ---
SOAP Progress Note Assessment/Plan: Assessment: Anemia with mild iron deficiency. Appropriate reticulocytosis. Possibly nutritional iron deficiency; also has possibility of subclinical GI bleed. Prescribed iron sulfate 325 mg p.o. Q.day, which he should continue for approximately 1 month. Advise follow-up with primary care. 02/07/18 13:02 Subjective: Labs reviewed Objective: Vital Signs Temp Pulse Resp BP Pulse Ox 36.4 C 73 16 101/64 99 02/07/18 06:00 02/07/18 06:00 02/07/18 06:00 02/07/18 06:00 02/07/18 06:00 Laboratory Results 02/05/18 20:10 ICD10 Worksheet Patient Problems: Problems Problem Status Onset Alcohol use disorder, severe, dependence Acute Schizoaffective disorder, bipolar type Acute Stimulant use disorder Acute
[2018-02-07] MEDS: DIVALPROEX ER 500 MG TAB PO SCH (20:08)
[2018-02-08] MEDS: ACETAMINOPHEN 325 MG TAB PO PRN ×2 (00:20→15:37)
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
[2018-02-08] MEDS: FERROUS SULFATE 325 MG TAB PO SCH (09:23)
[2018-02-08] MEDS: PALIPERIDONE 3 MG TAB.ER PO SCH ×2 (09:23→22:16)
--- NOTE | 2018-02-08 14:33 | ASMTCMCOM ---
CM Note CM Note Notes: Pt. reports he is "ready to go home". Pt. stated he slept "alright, kept having nightmares". Pt. stated he thinks the nightmares may be from the medication he is taking. Pt. reports feeling nauseous and having diarrhea from his medications. Pt. reports eating "plenty". Pt. stated he is not attending group, due to sleeping a lot. Pt. reports being "tired from partying". Pt. reports using meth and stated it is affecting his teeth. Pt. stated he plans to "stay off that shit [meth]". Pt. reports "trying to get into rehab". Pt. stated he will continue living with his mom upon discharge. Pt. stated they are "taking care of each other". Pt. reports having worked with [facility] in the past. Pt. denied SI, HI, AVH and paranoia. Pt. stated he will need a bus ticket when he discharges to get to [place]. Pt. presents as alert, somewhat anxious, pacing, covered in a blanket, fair eye contact and requesting to discharge as soon as possible. Staff report pt. sleeping 7 hours and refusing his Depakote this morning. Date Signed: 02/08/2018 02:32 PM Electronically Signed By:Neva Wright
[2018-02-08] MEDS ORDERED: LORazepam 1 MG TAB PO PRN (16:17)
[2018-02-08] MEDS: IBUPROFEN 600 MG TAB PO PRN (18:25)
[2018-02-08] MEDS ORDERED: DIVALPROEX ER 500 MG TAB PO SCH (21:00)
[2018-02-09] MEDS: FERROUS SULFATE 325 MG TAB PO SCH (08:51)
[2018-02-09] MEDS: CYANO/VITAMIN B12 100 MCG TAB PO SCH (08:51)
[2018-02-09] MEDS: PALIPERIDONE 3 MG TAB.ER PO SCH ×2 (08:51→20:43)
[2018-02-09] MEDS ORDERED: PALIPERIDONE 3 MG TAB.ER PO SCH ×2 (09:00)
--- NOTE | 2018-02-09 15:34 | ASMTBHFAM ---
Notes Note: Notes: CC called pt's motherYun ([phone]) several times and left a message asking her to call the unit back. Pt. has reported his mother owns a handgun. CC called to confirm pt can come home and the gun is out of the home or in a safe due to pt's previous suicidal plan to shoot himself in the head. Staff report pt. sleeping 4.5 hours, being medication compliant and willing to stay until Saturday. Date Signed: 02/09/2018 03:33 PM Electronically Signed By:Neva Wright
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
[2018-02-09] MEDS: IBUPROFEN 600 MG TAB PO PRN (23:28)
[2018-02-10 06:41] VITALS: BP 100/50
--- NOTE | 2018-02-10 08:17 | BDS ---
REASON FOR ADMISSION: From the ED report dated 02/05/2018, the patient presented to the ED in a private vehicle voluntarily with complaints of feeling suicidal. The patient reported he had been dealing with depression and feeling suicidal for a few days. The patient admitted to alcohol use daily, last use yesterday with supervised detox today prior to presenting to the ED. The patient reported daily use of methamphetamine and reported last use 2 days ago. The patient was admitted involuntarily on an M1 hold due to being a danger to himself. The patient was admitted for safety, crisis stabilization and medication management. ADMITTING DIAGNOSES: 1. Schizoaffective disorder, bipolar type. 2. Stimulant use disorder, severe. 3. Alcohol use disorder, severe. ADMISSION PHYSICAL EXAM: The patient was seen on 02/06/2018, for an internal medicine consultation by Dr. Stern for medical clearance for inpatient behavioral health stay. Dr. Stern reported he saw no medical contraindications to the patient's continued stay on the inpatient behavioral health unit or to any psychiatric medications or procedures. For further details, please see Dr. Stern's note dated 02/06/2018. ADMISSION LABS: From the emergency department, CBC revealed mild anemia with a hemoglobin of 12.4 and hematocrit of 39.3. MCV was normal, but patient had a low MCH and MCHC. Otherwise, CBC was normal. Serum chemistry revealed normal renal function and electrolytes. Toxicology screen in the serum was negative for any substances of abuse. Toxicology screen in the serum was negative for salicylates, acetaminophen or ethyl alcohol, and toxicology screen in the urine was non-negative for benzodiazepines, but otherwise was negative for substances of abuse. Fasting lipid panel from 02/07/2018, within normal limits except LDL/ HDL ratio was elevated at 85, cholesterol/HDL ratio was low at 0.93. Vitamin B12 from 02/08/2018, was 271. TSH from 02/08/2018, was 0.882. MAJOR PROCEDURES OR TESTS: None. HOSPITAL COURSE: The most prominent symptoms and behaviors while the patient was here were moderate depression. The patient was withdrawn to his room, slept the majority of the time the 1st couple days. The patient reported auditory hallucinations and a history of estefanía. The patient's underlying psychiatric diagnosis is complicated by substance abuse, including daily use of methamphetamine and alcohol. Treatment modalities utilized to target symptoms during hospitalization were milieu and group therapy. Invega ER 6 mg p.o. daily was started to target mood and psychosis symptoms, was tolerated with no report of side effects and with good response. Depakote 1500 mg p.o. q.h.s. was started to target mood symptoms. The patient reported feeling over-sedated from this medication. The medication was reduced over the weekend to 1000 mg p.o. q.h.s. However, patient continued to refuse Depakote. The patient has improved considerably with no signs of psychiatric symptoms and no psychiatric symptoms expressed at discharge. The patient reports he has improved since admission. States to be in stable condition. Feels safe to discharge and he contracts for safety. Patient's response to treatment was good. There were no adverse or unexpected results of treatment. The patient was safe throughout his stay, active in treatment, engaged in groups, and was appropriate with staff and other patients. The patient met with nursing, this RADIO OPERATOR GROUND, and medicare sales executive prior to discharge to assess readiness to discharge and reviewed discharge plan. The treatment team consensus is the patient is in stable condition, has a safe discharge plan and is ready to discharge today. CONDITION AT DISCHARGE: Patient is in stable condition and is no longer a danger to self or others, and is not gravely disabled due to mental illness. Patient is no longer in need of inpatient level of care, and can be safely and effectively treated within the community. The patients level of risk at time of discharge is low. MSE: The patient is casually dressed and with good hygiene , and looks stated age. Patient is sitting, posture is upright, and position is relaxed. Patient appears awake, alert, and responds appropriately and reasonably during interview. Patient is engaged, relates well to interviewer, and emotional facial expression is appropriate to situation and changes appropriately with topic. Patient is cooperative, makes comfortable eye contact , and movements are voluntary, deliberate, coordinated, and smooth and even with no inappropriate movements. Patient makes laryngeal sounds effortlessly and shares conversation appropriately; pace of conversation is appropriate, and stream of talking is fluent; articulation is clear and understandable; word choice is effortless and appropriate for education level; completes sentences, occasionally pausing to think; rate and volume are appropriate for interview and setting. Patient reports mood as euthymic. Patients affect is stable with full variable range, congruent with mood, and appropriate to speech and circumstances. Patient has linear and logical thinking, with no loose associations, tangential thought, thought blocking, concrete thinking, or any other signs of formal thought disorder. Patient denies suicidal and homicidal ideation, and denies hallucinations and delusions. Patient appears to be a reliable historian with sound judgement and good insight into current condition. Patient has no apparent dysfunction in recent or remote memory noted , and no evidence of gross cognitive dysfunction noted at any point during the interview. DISCHARGE DIAGNOSES: 1. Schizoaffective disorder, bipolar type. 2. Stimulant use disorder, severe. 3. Alcohol use disorder, severe. CURRENT MEDICATIONS: After reviewing options risks and benefits, the patient agrees to continue Invega ER 6 mg p.o. daily. The patient requests prescriptions for the following medications at the time of discharge: Invega ER 6 mg p.o. q.h.s. Prescription for 30 days is provided. The prescription is reviewed with the patient at time of discharge to ensure accuracy and patient understanding. DISPOSITION: The patient left hospital independently and voluntarily and plans to return to his mother's home in [place]. FOLLOWUP: materials handling coordinator reports the appropriate outpatient follow-up services have been established and outpatient appointments have been scheduled. The patient received written instructions with times and dates of outpatient follow-up appointments. The following follow-up recommendations were provided to the patient at discharge: Continue psychotropic medications as prescribed and attend appointments as scheduled. Report any side effects to a psychiatric outpatient provider, a primary care provider, or other health point of care technician. Address any questions or problems concerning the psychotropic medications with a psychiatric outpatient provider, a primary care provider, or other health point of care technician. Contact [facility] or [facility], or go to the nearest emergency room, if you are ever a danger to yourself/others, or unable to care for yourself. As soon as possible, establish a routine medication management treatment with a psychiatric provider, establish routine therapy appointments, and follow-up with a primary care provider. SUBSTANCE ABUSE BRIEF INTERVENTION: Brief intervention regarding the risks of alcohol and methamphetamine abuse is provided to patient with goal to reduce the risk of harm that could result from the continued use of alcohol and methamphetamine, with the general aim to investigate the problem, raise awareness of problem, develop a solution with the patient, recommend a specific change or activity, and motivate the patient toward change. Assess substance abuse behavior and give supportive advice about harm reduction, recommend a reduction in hazardous/at-risk consumption patterns, and facilitate referrals for additional specialized treatment with medicare sales executive. Intermediate goal is for the patient to quit and attend NA meetings and engage in outpatient substance abuse treatment. Intervention focus on intermediate goals to allow for more immediate success in the treatment process to keep the patient motivated. Review following with patient: Alcohol/Binge Drinking risks: short- term: injuries, violence, alcohol poisoning, risky sexual behaviors. Long-term : high blood pressure, stroke, liver disease, digestive problems, cancer, learning and memory problems, depression and anxiety, social problems, and alcohol dependence. Methamphetamine use risks: Short-term: insomnia, irritability, aggressive behavior, hallucinations, delusions, intellectual deficits, anxiety, depression, convulsions, damage to blood vessels in the brain causing strokes, high fevers, collapse of the circulatory system. Long- term: damage to nerve pathways, maybe irreversibly; overstimulation to dopamine impairing dopamine transport and reducing efficiency of dopamine receptors, the reward system becomes worn out, leading to inability to experience pleasure for years. OUTPATIENT SUBSTANCE ABUSE TREATMENT: Patient referred to outpatient provider and treatment for continued treatment related to substance abuse. LEGAL COURSE: The patient was admitted on an M1 hold. The patient did become voluntary during his stay. The patient discharged today independently and voluntarily. ATTITUDE AT TIME OF DISCHARGE: The patient reports "I am ready to discharge today. I would like to return to my mother's home. My mother does need assistance with chores around the home and I do feel safe to discharge today. I look forward to watching the [employer] play tonight." The patients attitude was positive at time of discharge, and patient reports looking forward to discharging today. The patient reports he feels safe to discharge, is no longer a danger to himself or others, is in stable condition, and contracts for safety. Patient states he will continue medications as prescribed, and establish medication management treatment with an outpatient provider after discharge. Patient reports he understands the information that has been provided to him, and he understands, accepts, and agrees to psychotropic medications. Patient describes internal protective factors as the coping skills he has learned while hospitalized here, and he plans to continue to practice these coping skills after discharge. Patient reports external protective factors as mother. Patient describes looking forward to watching the [employer] game with his mother april after discharge. LABS AND STUDIES: There were no pending labs or studies at time of discharge. ADVANCE DIRECTIVES: There were no advance directives on file, and the patient was full code during this hospitalization. The following psychotropic medication treatment informed consent and recommendations were provided to the patient at time of discharge. Patient reports he understands, accepts, and agrees to the information that has been provided. PSYCHOTROPIC MEDICATION TREATMENT INFORMED CONSENT and RECOMMENDATIONS: Review nature of condition, diagnosis, and prognosis. Review nature and purpose of psychotropic medication treatment. Review type of psychotropic medications being prescribed. Review risk and benefits of psychotropic medication treatment. Review probable length of time will need to take medications. Review risk and benefits of not undergoing psychotropic medication treatment. Review alternative treatments to psychotropic medications. Review psychotropic medications contraindications, side effects, and importance of reporting any side effects to a psychiatric provider, primary care provider, or other health point of care technician. Review importance of her asking a psychiatric provider or primary care provider any questions or problems concerning the psychotropic medications. Review safety plan and the importance to contact [facility] or [facility] , or go to the nearest emergency room, if ever a danger to yourself/others, or unable to care for yourself. Recommend upon discharge to establish routine medication management treatment with a psychiatric provider, establish routine therapy appointments, and follow-up with a primary care provider. Verify patient understands, accepts, and agrees to the information that has been provided. SUICIDE ASSESSMENT FIVE-STEP EVALUATION AND TRIAGE (1) RISK FACTORS: (a) Suicidal behavior: patient reports history of suicide attempt and cutting on wrist as suicide gesture (b) Current/past psychiatric disorders: schizoaffective disorder, bipolar type (c) Jiménez symptoms: none expressed or exhibited at discharge (d) Family history: none (e) Precipitants/Stressors/Interpersonal: none (f) Change in treatment: discharge from psychiatric hospital (g) Access to firearms: none; medicare sales executive reported she spoke to patient's mother and mother reported patient does not have access to a firearm in her home as patient previously reported (2) PROTECTIVE FACTORS: (a) Internal: coping skills learned while hospitalized (b) External: family (3) SUICIDAL INQUIRY: (a) Ideation: none (b) Plan: none (c) Behaviors: none; patient was safe throughout stay with no suicidal or parasuicidal behaviors (d) Intent: none (4) RISK LEVEL: Low: modifiable risk factors, strong protective factors; no suicidal or self-injurious ideation. Intervention: treatment plan to reduce symptoms including medications and therapy, provided emergency/crisis numbers, and established follow-up plan. /[id number]/MODL MTDD
[2018-02-10] MEDS ORDERED: PALIPERIDONE 3 MG TAB.ER PO SCH (09:00)
[2018-02-10] MEDS: CYANO/VITAMIN B12 100 MCG TAB PO SCH (10:10)
[2018-02-10] MEDS: FERROUS SULFATE 325 MG TAB PO SCH (10:10)
--- NOTE | 2018-02-10 11:39 | ASMTBHDC ---
Notes Note: Notes: Pt. stated his mom got a new phone number, adding it is [phone]. CC spoke with pt's mom. MOC stated there is no gun in her home and is not sure why the pt. is saying there is. MOC stated pt. does not live with her. MOC stated pt. is not staying with her after discharge, but coming there to talk. CC told pt. what MOC stated. Pt. told CC "don't worry about that" when asked where pt. will stay after discharge. Pt. stated he is annoyed with his mom for telling staff he won't be staying with her. Pt. stated he can stay with "my homeboy" and refused to tell CC his friend's name or address. Pt. stated he will not stay at the homeless residential. Pt. then requested to call him mom. Date Signed: 02/10/2018 11:38 AM Electronically Signed By:Neva Wright
--- NOTE | 2018-02-10 12:36 | SOAPPROG ---
SOAP Progress Note Assessment/Plan: Assessment: Schizoaffective disorder, bipolar type, currently depressed. Stimulant use disorder, severe. Alcohol use disorder, severe. Slight improvement noted. ( see subjective/objective note). Patient is not safe to discharge at this time as patient continues to exhibit signs of depression, and express depressive symptoms. Patient requires continued inpatient care because of current depression, and requires inpatient level of care to stabilize. Patient could benefit from continued inpatient hospitalization for crisis stabilization ( recent SI with plan to use gun), safety (suicide by gun plan prior to admission) , and medication evaluation (patient reports good response from medications in the past and history of self-medicating with substances when no RX medications) . Plan: (1) Psychotropic medications: After reviewing options, risks, and benefits patient agrees to continue current medications. No medication changes at this time as more time is needed to determine ongoing tolerability and efficacy. Plan is to continue to observe patient for response and side effects from medications, and ongoing monitoring and evaluation. (2) Review with patient informed consent and recommendations for psychotropic medication treatment listed below (3) Labs: VPA level on Saturday prior to discharge (4) Therapy: continue milieu and group therapy (5) Further investigation including gathering information from patients relatives and review of past case records to inform treatment plan. (6) Safety/Wellness plan and follow-up outpatient appointments to be established prior to discharge. Next steps are for patient to meet with healthcare translator to plan a safe discharge plan and establish outpatient services for ongoing treatment. (7) Confer with inpatient treatment team regarding treatment plan. (8) Legal status: M1, to sign in voluntary when M1 expires (9) Consider discharge on Saturday if patient is in stable condition, safe, and has a safe discharge plan. (10) Substance abuse interventions: Alcohol and methamphetamine PSYCHOTROPIC MEDICATION TREATMENT INFORMED CONSENT and RECOMMENDATIONS: Review nature of condition, diagnosis, and prognosis. Review nature and purpose of psychotropic medication treatment. Review type of psychotropic medications being ordered. Review risk and benefits of psychotropic medication treatment. Review probable length of time patient will need to take medications. Review risk and benefits of not undergoing psychotropic medication treatment. Review alternative treatments to psychotropic medications. Review psychotropic medications contraindications, drug-drug interactions, side effects, and importance of reporting any side effects to a psychiatric provider or nurse during inpatient hospitalization, and upon discharge to patients psychiatric outpatient provider, primary care provider, or other health healthcare educator. Review importance of asking a nurse, psychiatric provider, or primary care provider any questions or problems concerning the psychotropic medications. Verify patient understands the information that has been provided, and understands, accepts, and agrees to psychotropic medications. Review patients safety plan and importance of patient to report to staff while hospitalized if patient is ever a danger to self/others, or unable to care for self, and upon discharge, the importance for patient to contact [facility] or [facility], or go to the nearest emergency room, if patient is ever a danger to self/others, or unable to care for self. Recommend that upon discharge patient establish medication management treatment with a psychiatric provider, establishes routine therapy appointments, and follow-up with primary care provider. Verify patient understands and agrees to these recommendations. 02/07/18 08:02 Objective: Vital Signs Temp Pulse Resp BP Pulse Ox 36.5 C 63 20 100/50 L 95 02/10/18 06:00 02/10/18 06:00 02/10/18 06:00 02/10/18 06:00 02/10/18 06:00 Laboratory Results 02/05/18 20:10 Report from nursing during discharge with patient: Patient was uncooperative during discharge, asked nurse to throw away all his discharge paperwork and his prescription. Patient was reported to say, "I am not going to take that shit" with regard to not wanting his medication prescription. Patient also threatened staff prior to discharging, making a threatening statement in regards to history of being in a gang. Security was notified regarding the threatening remarks. Patient reported he went to the hospital because he needed a place to stay, and denied having history of AH at time of discharge planning and review with nurses. ICD10 Worksheet Patient Problems: Problems Problem Status Onset Alcohol use disorder, severe, dependence Acute Schizoaffective disorder, bipolar type Acute Stimulant use disorder Acute
== END 2018-02-10 11:35 | disposition home or self-care (01) | DRG 753 ==
LOC: BBEH 12:50
PROVIDERS: ADMIT Psychiatry & Neurology Psychiatry; ATTEND Psychiatry & Neurology Psychiatry
DX: F31.5 Bipolar disorder, current episode depressed, severe, with psychotic features (principal); F15.20 Other stimulant dependence, uncomplicated; F10.99 Alcohol use, unspecified with unspecified alcohol-induced disorder
CPT/HCPCS: 82607-90